=== PATIENT | female | born 1950 | race Caucasian/White ===

== ENCOUNTER 2017-02-11 13:12 | Day surgery (SDC) | payer MEDICARE, OTHER ==
[2017-02-11] MEDS ORDERED: PROPOFOL 40 ML (15:10)
[2017-02-11] MEDS ORDERED: MIDAZOLAM 1 MG/ML 2 ML INJ (15:10)
== END 2017-02-11 19:14 | disposition home or self-care (01) ==
LOC: GIL 13:12
DX: R19.4 Change in bowel habit (principal); K29.70 Gastritis, unspecified, without bleeding; K64.8 Other hemorrhoids; E11.9 Type 2 diabetes mellitus without complications; I10 Essential (primary) hypertension
CPT/HCPCS: 43239; 87081